=== PATIENT | male | born 1975 | race Caucasian/White ===

== ENCOUNTER 2025-08-01 21:11 | Emergency (ER) | payer OTHER | END 2025-08-01 23:44 | disposition left against medical advice (07) | LOC: ER 21:15 | DX: S01.81XA Laceration without foreign body of other part of head, initial encounter (principal); Z53.21 Procedure and treatment not carried out due to patient leaving prior to being seen by health care provider; W19.XXXA Unspecified fall, initial encounter; Y93.89 Activity, other specified; Y92.89 Other specified places as the place of occurrence of the external cause; Y99.8 Other external cause status ==